=== PATIENT | male | born 1970 | race Two or more races ===

== ENCOUNTER 2020-01-21 00:28 | Emergency (ER) | payer OTHER ==
[~2020-01-21] VITALS: Ht 157.5 cm; Wt 72.6 kg
[2020-01-21 00:30] VITALS: BP 220/118
--- NOTE | 2020-01-21 00:30 | NUR ---
ED Nurse Note: PT ambulated to ED from work where he accidentally cut his R hand with a glass pipe from his [employer]. The lac is between his thirda nd fourth finger, actively bleeding. Pt putting pressure on wound with towel. Ptc is A&OX4, VSS. ERMD at bedside
[2020-01-21] MEDS ORDERED: Lidocaine 1% MPF 10mg/ml 5ml INJ ONE (01:00)
[2020-01-21] MEDS ORDERED: Bacitracin Oint UD TOPIC ONE (01:00)
[2020-01-21] MEDS ORDERED: Tetanus/Diptheria/Pertussis IM ONE (01:00)
--- NOTE | 2020-01-21 01:29 | Emergency Room Report ---
History of Present Illness General Chief Complaint: Laceration Source: Patient Present Illness HPI Patient was assembling a glass pipe and it broke and he jammed it into his right hand. It has been bleeding. This happened 2 hours prior to to presentation. The patient reports that he lost less than a small teacup of blood. He reports the pain 10/10 at this time. He denies any numbness to the finger. There is no change in range of motion also. The patient used toothpaste to control the bleeding. Greater than 10 years since last tetanus vaccination. Patient is right-handed. Patient denies exposure to Covid positive contacts. Lower upper respiratory symptoms, fevers or chills. Patient denies major medical problems. Allergies: Coded Allergies: No Known Allergies (Unverified , 01/21/20) COVID-19 Screening Contact w/high risk pt: No Experienced COVID-19 symptoms?: No COVID-19 Testing performed CATCHER HELPER: No Patient History Past Medical History: see triage record Social History: Reports: smoking Social History Narrative Works at a smoke shop Reviewed Nursing Documentation: PMH: Agreed; PSxH: Agreed Nursing Documentation-PMH Past Medical History: No Stated History Review of Systems Constitutional: Reports: see HPI ENT: Reports: see HPI Respiratory: Reports: see HPI Musculoskeletal: Reports: see HPI Skin: Reports: see HPI Neurological: Reports: see HPI Hematologic/Lymphatic: Reports: see HPI Physical Exam Vital Signs Date Time Temp Pulse Resp B/P (MAP) Pulse Ox O2 Delivery O2 Flow Rate FiO2 01/21/20 00:30 97.9 112 20 220/118 (152) 98 Room Air Sp02 EP Interpretation: reviewed, normal General Appearance: well appearing, no apparent distress, GCS 15 Head: normocephalic Eyes: bilateral eye normal inspection, bilateral eye PERRL, bilateral eye EOMI ENT: moist mucus membranes Neck: normal inspection Respiratory: normal inspection Cardiovascular #1: regular rate, rhythm Cardiovascular #2: 2+ radial (R) - Good capillary fill Gastrointestinal: normal inspection Musculoskeletal: gait/station normal, normal range of motion - All flexor tendons tested and functioning fully Neurologic: alert, motor strength/tone normal, distal neuro normal, oriented x3, other - Distal sensory exam to the puncture wound and laceration normal bilaterally Psychiatric: mood/affect normal Skin: normal color, warm/dry, other - Puncture wound and laceration at the base of the right middle finger. Procedures Laceration/Wound Repair Laceration/Wound Repair : Consent: Verbal Wound Location: upper extremity - Base of right middle finger Wound's Depth, Shape: into muscle, other Wound Length (cm): 1 - < 1 cm deep, total = 1 cm Irrigated w/ Saline (ccs): 10 Betadine Prep?: Yes Anesthesia: 1% Lidocaine Wound Repaired With: sutures Suture Size/Type: 5:0 Sterile Dressing Applied?: Yes Splint Applied?: No Sling Applied?: No Patient Tolerated: Well Complications: None Progress Bleeding controlled prior to laceration repair with direct pressure and elevation of the hand. Medical Decision Making Diagnostic Impression: Primary Impression: Laceration of right hand Qualified Codes: S61.411A - Laceration without foreign body of right hand, initial encounter ER Course Patient presents with puncture wound and laceration the base of the right middle finger. Bleeding needs to be controlled with direct pressure. X-rays are indicated to exclude foreign body. As there is bleeding the laceration needs to be sutured to control further bleeding and to assist in the wound healing. Patient needs tetanus toxoid. X-ray without foreign body in the area of the laceration. Please see procedure note. Patient was instructed in wound care. Also advised to have the suture removed in 7 days. Patient stable for outpatient observation and treatment. Other X-Ray Diagnostic Results Other X-Ray Diagnostic Results : X-Ray ordered: Right hand # of Views/Limited Vs Complete: 3 View Indication: Pain EP Interpretation: Yes Interpretation: no dislocation, no soft tissue swelling, no fractures, other - No foreign body, evidence of toothpaste Impression: No acute disease Electronically Signed by: Electronically signed by Raúl Marquez MD Last Vital Signs Date Time Temp Pulse Resp B/P (MAP) Pulse Ox O2 Delivery O2 Flow Rate FiO2 01/21/20 02:35 97.8 82 20 167/100 98 Room Air Status: improved Disposition: HOME, SELF-CARE Condition: Improved Scripts Bacitracin (Bacitracin) 28.4 Gm Oint...g. 1 APPLIC TOPIC BID, #10 GM Prov: Raúl Marquez MD 01/21/20 Ibuprofen* (MOTRIN*) 600 Mg Tablet 600 MG ORAL Q6H PRN for FOR PAIN, #14 TAB 0 Refills Prov: Raúl Marquez MD 01/21/20 Referrals: NOT CHOSEN IPA/,REFERRING (PCP) Raúl Marquez MD Jan 21, 2020 01:29
--- NOTE | 2020-01-21 02:00 | NUR ---
ED Nurse Note: ERMD placed onec stitch without complication, pt tolerated well.
[2020-01-21] MEDS ORDERED: IBUPROFEN600 M1 ORAL (02:11)
[2020-01-21] MEDS ORDERED: BACITRACIN15 GM TOPIC (02:11)
[2020-01-21 02:35] VITALS: BP 167/100
--- NOTE | 2020-01-21 02:35 | NUR ---
ER DISCHARGE NOTE: Patient is cleared to be discharged per ERMD, pt is aox4, on room air, with stable vital signs. pt was given dc and prescription instructions, pt was able to verbalize understanding, pt id band removed. pt is able to ambulate with steady gait. pt took all belongings.
--- NOTE | 2020-01-21 18:26 | Diagnostic Imaging Report ---
EXAM: XR Right Hand Complete, 3 or More Views CLINICAL HISTORY: FB TECHNIQUE: Frontal, lateral and oblique views of the right hand. COMPARISON: No relevant prior studies available. FINDINGS: Bones/joints: Possible nondisplaced fifth digit tuft fracture. Remaining bones and soft tissues unremarkable. No dislocation. Soft tissues: No metallic foreign objects seen. Subtle density along the ulnar aspect of the proximal first phalanx measures 0.8 cm in the soft tissues of uncertain significance, correlate with exam. Fifth digit distal soft tissue irregularity and nailbed irregularity suggests laceration. IMPRESSION: 1. Possible nondisplaced fifth digit tuft fracture. 2. Fifth digit distal soft tissue irregularity and nailbed irregularity suggests laceration. 3. Subtle density along the ulnar aspect of the proximal first phalanx measures 0.8 cm in the soft tissues of uncertain significance, correlate with exam. 4. No metallic foreign objects seen.
== END 2020-01-21 02:35 | disposition home or self-care (01) ==
LOC: EMR 00:52
DX: S61.411A Laceration without foreign body of right hand, initial encounter (principal); F17.200 Nicotine dependence, unspecified, uncomplicated; W25.XXXA Contact with sharp glass, initial encounter; Y93.89 Activity, other specified; Y92.9 Unspecified place or not applicable
CPT/HCPCS: 90471; 90715; 99283